=== PATIENT | female | born 1965 | race Caucasian/White ===

== ENCOUNTER 2017-02-10 14:58 | Emergency (ER) | payer BC, MEDICAID ==
[2017-02-10] MEDS ORDERED: Ondansetron 4 MG/2 ML SDV IVPUSH ONE (17:03)
[2017-02-10] MEDS ORDERED: Sodium Chloride 0.9% 1,000 ML IV SCH (17:15)
[2017-02-10] MEDS ORDERED: Acetaminophen 500 MG Tab PO ONE (17:16)
--- NOTE | 2017-02-10 17:16 | EDM.PDOC ---
ED HPI GENERAL MEDICAL PROBLEM - General Chief Complaint: Skin Complaint Stated Complaint: RASH ON BACK OF LEGS Time Seen by Provider: 02/10/17 16:40 Source of Information: Reports: Patient History Limitations: Reports: No Limitations - History of Present Illness INITIAL COMMENTS - FREE TEXT/NARRATIVE: 51 yo female presents left posterior upper leg. noticed mild tenderness 3 nights ago, increase in pain yesterday, this morning felt fatigue, fever, and chills. generally healthy Right Leg Pain Score (Numeric/FACES): 9 - Related Data Allergies Allergy/AdvReac Type Severity Reaction Status Date / Time No Known Allergies Allergy Verified 02/10/17 16:15 Home Meds: Home Meds NK [No Known Home Meds] 02/10/17 [History] Past Medical History Respiratory History: Reports: Asthma [employer] EMPLOYMENT SPECIALIST History: Reports: Dysfunctional Uterine Bleeding, Neurological History: Reports: Vertigo - Infectious Disease History Infectious Disease History: Reports: Chicken Pox - Past Surgical History Female Surgical History: Reports: Section Social & Family History - Tobacco Use Smoking Status *Q: Never Smoker Second Hand Smoke Exposure: No - Caffeine Use Caffeine Use: Reports: Coffee, Soda, Tea - Recreational Drug Use Recreational Drug Use: No ED ROS GENERAL - Review of Systems Review Of Systems: See Below Constitutional: Reports: Fever, Chills, Fatigue HEENT: Denies: Sinus Problem Respiratory: Denies: Shortness of Breath, Wheezing Cardiovascular: Denies: Chest Pain Skin: Reports: Lesions ED EXAM, SKIN/RASH Exam: See Below Exam Limited By: No Limitations General Appearance: Alert, WD/WN, Mild Distress Head: Atraumatic, Normocephalic Neck: Normal Inspection, Supple, Non-Tender, Full Range of Motion Respiratory/Chest: No Respiratory Distress, Lungs Clear, Normal Breath Sounds, No Accessory Muscle Use, Chest Non-Tender Cardiovascular: Normal Peripheral Pulses, No Murmur, Tachycardia Neurological: Alert, Oriented Location, Skin: Lower Extremity, Right Characteristics: Other (multiple pustules moderate surrounding edema and erythema, mild induration ) Associated features: Warmth Course - Vital Signs Last Recorded V/S: Last Vital Signs Temp 38.4 C H 02/10/17 18:49 Pulse 117 H 02/10/17 18:49 Resp 16 02/10/17 18:49 BP 146/79 H 02/10/17 18:49 Pulse Ox 97 02/10/17 18:49 - Orders/Labs/Meds Orders: Active Orders 24 hr Category Date Time Status Sodium Chloride 0.9% [Normal Saline] 1,000 ml Med 02/10/17 17:15 Active IV ASDIRECTED Medication Orders Sodium Chloride (Normal Saline) 1,000 mls @ 500 mls/hr IV ASDIRECTED DINESH Last Admin: 02/10/17 17:24 Dose: 500 mls/hr Labs: Laboratory Tests 02/10/17 02/10/17 Range/Units 17:14 17:34 WBC 14.8 H (4.5-11.0) K/uL RBC 4.98 (3.30-5.50) M/uL Hgb 14.0 (12.0-15.0) g/dL Hct 41.0 (36.0-48.0) % MCV 82 (80-98) fL MCH 28 (27-31) pg MCHC 34 (32-36) % Plt Count 291 (150-400) K/uL Neut % (Auto) 87 H (36-66) % Lymph % (Auto) 6 L (24-44) % [place] % (Auto) 6 (2-6) % Eos % (Auto) 0 L (2-4) % Baso % (Auto) 0 (0-1) % Lactic Acid 1.0 (0.4-2.0) mmol/L Meds: Medications Generic Name Dose Route Start Last Admin Trade Name Freq PRN Reason Stop Dose Admin Sodium Chloride 1,000 mls @ 500 mls/hr 02/10/17 17:15 02/10/17 17:24 Normal Saline IV 500 mls/hr ASDIRECTED DINESH Administration Discontinued Medications Generic Name Dose Route Start Last Admin Trade Name Freq PRN Reason Stop Dose Admin Acetaminophen 1,000 mg 02/10/17 17:16 02/10/17 17:29 Tylenol Extra Strength PO 02/10/17 17:17 1,000 mg ONETIME ONE Administration Clindamycin Phosphate 300 mg/ 52 mls @ 150 mls/hr 02/10/17 17:02 02/10/17 17: 24 Sodium Chloride IV 02/10/17 17:22 150 mls/hr ONETIME ONE Administration Ondansetron HCl 4 mg 02/10/17 17:03 02/10/17 17:24 Zofran IVPUSH 02/10/17 17:04 4 mg ONETIME ONE Administration - Re-Assessments/Exams Free Text/Narrative Re-Assessment/Exam: 02/10/17 19:10 IV antibiotics given will send home on oral Keflex. WBC 14.8 without left shift. Lactic acid normal at 1.0. fever decreased while in emergency room. Pt has established care with primary care provider and will follow-up tomorrow if not markedly improved Departure - Departure Time of Disposition: 19:06 Disposition: Home, Self-Care 01 Condition: Fair Clinical Impression: Cellulitis of lower extremity Qualifiers: Laterality: left Qualified Code(s): L03.116 - Cellulitis of left lower limb - Discharge Information Referrals: PCP,None [Primary Care Provider] - Forms: ED Department Discharge Additional Instructions: Keflex 500 mg twice daily for 10 days treat fever with alternating Ibuprofen 400 mg every 6 hours and tylenol every 6 hours staggered so that you have a fever suppressing medication in your system every 3 hours. tub soaks in warm soapy water at least 20 minutes twice daily until lesion is healed If you are not feeling markedly better by tomorrow noon you need to follow-up tomorrow with your primary care provider or return to emergency room if the redness grows outside the [place] your need to follow-up with you primary care provider or return to emergency room - My Orders Last 24 Hours: My Active Orders 02/10/17 17:15 Sodium Chloride 0.9% [Normal Saline] 1,000 ml IV ASDIRECTED - Assessment/Plan Last 24 Hours: My Active Orders 02/10/17 17:15 Sodium Chloride 0.9% [Normal Saline] 1,000 ml IV ASDIRECTED
[2017-02-10 18:50] VITALS: BP 146/79
== END 2017-02-10 19:28 | disposition home or self-care (01) ==
LOC: JP.ED 14:58
DX: L03.116 Cellulitis of left lower limb (principal)
CPT/HCPCS: 36415; 83605; 85025; 96361; 96365; 96375; 99283; A9270; J2405; J7040; J7050; S0077

== ENCOUNTER 2017-02-12 14:28 | Emergency (ER) | payer MEDICAID ==
[2017-02-12] MEDS ORDERED: Sodium Chloride 0.9% 10 ML Syringe FLUSH PRN (14:58)
--- NOTE | 2017-02-12 15:01 | EDM.PDOC ---
ED HPI GENERAL MEDICAL PROBLEM - General Chief Complaint: Lower Extremity Injury/Pain Stated Complaint: NEEDS IV ANTIBIOTICS PER CLINIC Time Seen by Provider: 02/12/17 14:54 Source of Information: Reports: Patient, Provider, RN Notes Reviewed History Limitations: Reports: No Limitations - History of Present Illness INITIAL COMMENTS - FREE TEXT/NARRATIVE: 51-year-old female presents emergency department day with a small abscess and redness progressing over the posterior aspect of the left leg she was evaluated in the emergency department couple days ago receive 1 dose of IV antibiotics and started on Keflex she followed up with her primary care provider the redness had progressed antibiotic were switched from Keflex to Bactrim she was subsequently evaluated in the urgent care today redness outlined by the pen has now progressed several inches past the original line. 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: Reports: Dysfunctional Uterine Bleeding, Neurological History: Reports: Vertigo - Infectious Disease History Infectious Disease History: Reports: Chicken Pox - Past Surgical History Female Surgical History: Reports: Section Social & Family History - Tobacco Use Smoking Status *Q: Never Smoker Second Hand Smoke Exposure: No - Caffeine Use Caffeine Use: Reports: Coffee, Soda, Tea - Recreational Drug Use Recreational Drug Use: No Review of Systems - Review of Systems Review Of Systems: See Below Constitutional: Reports: Chills, Fever Respiratory: Reports: No Symptoms Cardiovascular: Reports: No Symptoms GI/Abdominal: Reports: No Symptoms Skin: Reports: Pallor, Rash, Wound, Lesions ED EXAM, GENERAL - Physical Exam Exam: See Below Free Text/Narrative:: Examination of the integument system she does have a firm indurated area posterior aspect of the thigh left side there is erythema spreading out from that approximately 10 cm in diameter it is warm, it is tender to the touch Exam Limited By: No Limitations General Appearance: Alert, WD/WN, No Apparent Distress Respiratory/Chest: No Respiratory Distress, Lungs Clear, Normal Breath Sounds, No Accessory Muscle Use Cardiovascular: Regular Rate, Rhythm, No Murmur GI/Abdominal: Soft, Non-Tender Course - Vital Signs Last Recorded V/S: Last Vital Signs Temp 99 F 02/12/17 17:27 Pulse 84 02/12/17 16:23 Resp 16 02/12/17 16:23 BP 140/74 02/12/17 16:23 Pulse Ox 94 L 02/12/17 16:23 - Orders/Labs/Meds Orders: Active Orders 24 hr Category Date Time Status Peripheral IV Care [RC] . DIRECTED Care 02/12/17 14:58 Active CULTURE WOUND + SMEAR [RM] Stat Lab 02/12/17 17:48 Ordered Sodium Chloride 0.9% [Saline Flush] Med 02/12/17 14:58 Active 10 ml FLUSH ASDIRECTED PRN Peripheral IV Insertion Adult [OM.PC] Urgent Oth 02/12/17 14:58 Ordered Medication Orders Sodium Chloride (Saline Flush) 10 ml FLUSH ASDIRECTED PRN PRN Reason: Keep Vein Open Last Admin: 02/12/17 16:58 Dose: 10 ml Labs: Laboratory Tests 02/12/17 02/12/17 02/12/17 Range/Units 15:12 15:12 15:12 WBC 8.0 (4.5-11.0) K/uL RBC 5.01 (3.30-5.50) M/uL Hgb 14.2 (12.0-15.0) g/dL Hct 41.1 (36.0-48.0) % MCV 82 (80-98) fL MCH 28 (27-31) pg MCHC 35 (32-36) % Plt Count 277 (150-400) K/uL Neut % (Auto) 71 H (36-66) % Lymph % (Auto) 20 L (24-44) % [place] % (Auto) 8 H (2-6) % Eos % (Auto) 1 L (2-4) % Baso % (Auto) 0 (0-1) % Sodium 138 L (140-148) mmol/L Potassium 3.9 (3.6-5.2) mmol/L Chloride 103 (100-108) mmol/L Carbon Dioxide 24 (21-32) mmol/L Anion Gap 14.9 H (5.0-14.0) mmol/L BUN 6 L (7-18) mg/dL Creatinine 0.8 (0.6-1.0) mg/dL Est Cr Clr Drug Dosing 77.43 mL/min Estimated GFR (MDRD) > 60 (>60) Glucose 81 (74-106) mg/dL Lactic Acid 1.4 (0.4-2.0) mmol/L Calcium 9.0 (8.5-10.1) mg/dL Total Bilirubin 0.2 (0.2-1.0) mg/dL AST 19 (15-37) U/L ALT 17 (12-78) U/L Alkaline Phosphatase 67 (46-116) U/L C-Reactive Protein 8.43 H (0.0-0.3) mg/dL Total Protein 7.5 (6.4-8.2) g/dL Albumin 3.3 L (3.4-5.0) g/dL Globulin 4.2 H (2.3-3.5) g/dL Albumin/Globulin Ratio 0.8 L (1.2-2.2) Urine Color Urine Appearance Urine pH (4.5-8.0) Ur Specific [place] (1.008-1.030) Urine Protein (NEGATIVE) mg/dL Urine Glucose (UA) (NEGATIVE) mg/dL Urine Ketones (NEGATIVE) mg/dL Urine Occult Blood (NEGATIVE) Urine Nitrite (NEGATIVE) Urine Bilirubin (NEGATIVE) Urine Urobilinogen (NORMAL) mg/dL Ur Leukocyte Esterase (NEGATIVE) Urine RBC (0-5) Urine WBC (0-5) Ur Epithelial Cells Amorphous Sediment Urine Bacteria Urine Mucus 02/12/17 Range/Units 15:19 WBC (4.5-11.0) K/uL RBC (3.30-5.50) M/uL Hgb (12.0-15.0) g/dL Hct (36.0-48.0) % MCV (80-98) fL MCH (27-31) pg MCHC (32-36) % Plt Count (150-400) K/uL Neut % (Auto) (36-66) % Lymph % (Auto) (24-44) % [place] % (Auto) (2-6) % Eos % (Auto) (2-4) % Baso % (Auto) (0-1) % Sodium (140-148) mmol/L Potassium (3.6-5.2) mmol/L Chloride (100-108) mmol/L Carbon Dioxide (21-32) mmol/L Anion Gap (5.0-14.0) mmol/L BUN (7-18) mg/dL Creatinine (0.6-1.0) mg/dL Est Cr Clr Drug Dosing mL/min Estimated GFR (MDRD) (>60) Glucose (74-106) mg/dL Lactic Acid (0.4-2.0) mmol/L Calcium (8.5-10.1) mg/dL Total Bilirubin (0.2-1.0) mg/dL AST (15-37) U/L ALT (12-78) U/L Alkaline Phosphatase (46-116) U/L C-Reactive Protein (0.0-0.3) mg/dL Total Protein (6.4-8.2) g/dL Albumin (3.4-5.0) g/dL Globulin (2.3-3.5) g/dL Albumin/Globulin Ratio (1.2-2.2) Urine Color Yellow Urine Appearance Clear Urine pH 6.0 (4.5-8.0) Ur Specific [place] 1.015 (1.008-1.030) Urine Protein Negative (NEGATIVE) mg/dL Urine Glucose (UA) Normal (NEGATIVE) mg/dL Urine Ketones Negative (NEGATIVE) mg/dL Urine Occult Blood Large (NEGATIVE) Urine Nitrite Negative (NEGATIVE) Urine Bilirubin Negative (NEGATIVE) Urine Urobilinogen Normal (NORMAL) mg/dL Ur Leukocyte Esterase Negative (NEGATIVE) Urine RBC 20-30 H (0-5) Urine WBC 0-5 (0-5) Ur Epithelial Cells Few Amorphous Sediment Not seen Urine Bacteria Moderate Urine Mucus Not seen Meds: Medications Generic Name Dose Route Start Last Admin Trade Name Freq PRN Reason Stop Dose Admin Sodium Chloride 10 ml 02/12/17 14:58 02/12/17 16:58 Saline Flush FLUSH 10 ml ASDIRECTED PRN Administration Keep Vein Open Discontinued Medications Generic Name Dose Route Start Last Admin Trade Name Freq PRN Reason Stop Dose Admin Acetaminophen 650 mg 02/12/17 17:23 02/12/17 17:27 Tylenol PO 02/12/17 17:24 650 mg NOW ONE Administration Bupivacaine HCl/Epinephrine Bitart 50 ml 02/12/17 16:39 02/12/17 16:57 Marcaine 0.5%/Epinephrine 1:200,000 NERVRT 02/12/17 16:40 50 ml ONETIME ONE Administration Ceftriaxone Sodium 2 gm/ 50 mls @ 100 mls/hr 02/12/17 16:45 02/12/17 16:57 Sodium Chloride IV 02/12/17 17:14 100 mls/hr ONETIME ONE Administration Departure - Departure Time of Disposition: 17:53 Disposition: Home, Self-Care 01 Condition: Good Clinical Impression: Cellulitis of lower extremity Qualifiers: Laterality: left Qualified Code(s): L03.116 - Cellulitis of left lower limb - Discharge Information Forms: ED Department Discharge Additional Instructions: Take Keflex 2 tablets twice a day or 1000 mg each dose, continue with Bactrim DS as prescribed, use Zofran as needed for nausea and vomiting symptoms, recommend starting a probiotic, Please followup with your primary care provider in 2-3 days if not better, please call return to the emergency department with worsening of symptoms. - My Orders Last 24 Hours: My Active Orders 02/12/17 14:58 Peripheral IV Care [RC] . DIRECTED Sodium Chloride 0.9% [Saline Flush] 10 ml FLUSH ASDIRECTED PRN Peripheral IV Insertion Adult [OM.PC] Urgent 02/12/17 17:48 CULTURE WOUND + SMEAR [RM] Stat - Assessment/Plan Last 24 Hours: My Active Orders 02/12/17 14:58 Peripheral IV Care [RC] . DIRECTED Sodium Chloride 0.9% [Saline Flush] 10 ml FLUSH ASDIRECTED PRN Peripheral IV Insertion Adult [OM.PC] Urgent 02/12/17 17:48 CULTURE WOUND + SMEAR [RM] Stat Plan: Assessment Acuity = acute Site and laterality = cellulitis left thigh without abscess Etiology = secondary for bacterial cause Manifestations = fever Location of injury = home Lab values = CBC within normal limits sodium low at 138 consistent hyponatremia CRP elevated 8.43 albumin low at 3.3 consistent hypoalbuminemia urinalysis 20- 30 rbc's consistent hematuria Plan I did review lab work with her I don't believe she is septic at this time she was given 2 g Rocephin IV I'm going to continue her home antibiotics of Keflex and Bactrim however I'm going to change the dose of Keflex 2000 mg twice a day continue with the same dose of Bactrim and do both medications simultaneously have her follow-up clinic in 2-3 days if no improvement or return to the emergency department with worsening of conditions Patient was in agreement with the plan all questions were answered, they were instructed to return to the emergency department or call for worsening symptoms. This note was dictated using [employer] voice recognition software please call with any questions.
[2017-02-12 16:24] VITALS: BP 140/74
[2017-02-12] MEDS ORDERED: cefTRIAXone 2 GM in Sodium Chloride 0.9% 50 ML IV ONE ×2 (16:25→16:45)
[2017-02-12] MEDS ORDERED: Bupivacaine 0.5%/EPINEPHrine 1:200,000 50 ML MDV NERVRT ONE (16:39)
[2017-02-12] MEDS ORDERED: Acetaminophen 325 MG Tab PO ONE (17:23)
== END 2017-02-12 18:19 | disposition home or self-care (01) ==
LOC: JP.ED 14:28
DX: L03.116 Cellulitis of left lower limb (principal); J45.909 Unspecified asthma, uncomplicated
CPT/HCPCS: 36415; 80053; 81001; 83605; 85025; 86140; 87070; 87205; 96374; 99284; A9270; J0696; J7050

== ENCOUNTER 2017-11-22 07:23 | Day surgery (SDC) | payer MEDICAID ==
[2017-11-22] MEDS ORDERED: Lactated Ringers 1,000 ML IV SCH (08:15)
[2017-11-22] MEDS ORDERED: Propofol 200 MG/20 ML SDV ONE ×3 (08:50→09:54)
[2017-11-22] MEDS ORDERED: Midazolam 1 MG/ML 2 ML SDV ONE (08:50)
[2017-11-22] MEDS ORDERED: fentaNYL 100 MCG/2 ML SDV ONE (08:50)
[2017-11-22 11:26] VITALS: BP 175/96
[2017-11-22] MEDS ORDERED: Iopamidol 612 MG/ML 100 ML Bottle IV PRN (11:32)
[2017-11-22] MEDS ORDERED: Sodium Chloride 0.9% 80 ML IV SCH (11:45)
--- NOTE | 2017-11-22 12:25 | CT ---
CT chest, abdomen and pelvis. Total DLP 748. Findings: No enlarged mediastinal or hilar adenopathy. No focal consolidation. Tiny 2 to 3 mm pulmona ry nodule right upper lobe. Coronal image #38. No pleural effusion. No acute osseous abnormality. Tin y hypodensity within the right lobe of liver axial image #106 measures 3.5 mm and is too small to dorian racterize. Gallbladder within normal limits. Pancreas within normal limits. Bilateral adrenal glands are within normal limits. Spleen within normal limits. Kidneys enhance normally. No hydronephrosis. S mall bowel loops are nondilated. Limitations of the terminal ileum due to lack of oral contrast. No a cute osseous abnormality. Tortuous transverse colon. At the hepatic flexure there is mild wall thicke rosita posteriorly and medially. Mild hazy fat stranding as well about the colon wall on axial image #1 24. Tiny foci of free intraperitoneal air indicating colonic perforation. There is a few mesenteric l ymph nodes which are nonenlarged adjacent to the hepatic flexure on axial image #111. Appendix within normal limits. The cecum is greatly limited due to lack of oral contrast and adjacent small bowel lo ops. Impression: 1. Soft tissue wall thickening at the hepatic flexure may indicate the expected cancerous lesion. It appears vague within the wall and does not have convex margins. No appreciable stricture at this loca tion. There are lymph nodes in this location of the hepatic flexure but they're not enlarged. 2. Tiny foci of free air axial image #125 indicating colonic perforation. 3. Tiny hypodensity 4 mm within the posterior segment right lobe of the liver is too small to charact erize but would recommend CT follow-up in at least 6 months. 4. Tiny pulmonary nodule 2-3 mm right upper lobe. Recommend CT follow-up in 6 months.
--- NOTE | 2017-11-25 09:49 | OR ---
DATE OF PROCEDURE: 11/22/2017 PREOPERATIVE DIAGNOSIS: Colon cancer screening. POSTOPERATIVE DIAGNOSIS: Multiple colon polyps, hepatic flexure lesion consistent with adenocarcinoma. PROCEDURE PERFORMED: Colonoscopy to the cecum with biopsy and tattoo of hepatic flexure lesion, biopsy and snare cautery polypectomy of multiple polyps. SURGEON: Cam Reddy MD. AZURE ARCHITECT: Nohemy Nguyen MS3. ANESTHESIA: IV anesthesia with monitored anesthesia care. INDICATION: This 52-year-old white female is referred for a colonoscopy for colon cancer screening. 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 I counseled her for the procedure including risks and alternatives, and she gave her informed consent to proceed. DESCRIPTION OF PROCEDURE: The patient was placed in the left lateral decubitus position. IV anesthesia was administered by the Anesthesia Service. Time-out was held. A rectal exam was performed, which was unremarkable. The flexible video Olympus colonoscope was introduced through her anus, up her rectum, out her colon all way to the cecum. En route, at 40 cm from anal verge, we encountered a polyp which was fairly small and removed with the biopsy forceps. At about the area of the hepatic flexure, we encountered a circumferential mass which consumed almost one-half the circumference of the colon and is consistent with adenocarcinoma. This was biopsied and then the area was tattooed with Sudha ink. Once the cecum was reached, the scope was slowly withdrawn, examining the mucosa throughout. No other lesions were noted until we reached about 35 cm from the anal verge. Here , 2 polyps adjacent to each other were seen which were removed with the biopsy forceps and sent to the laboratory as 1 specimen. At 15 cm from the anal verge, another polyp was seen, which was removed with the biopsy forceps and sent to the laboratory. At 10 cm, an additional polyp was seen. We initially biopsied this one, but it was too large to remove using this technique. A snare was passed about its base, it was elevated up away from the bowel wall and amputated as electrocautery was applied. This polyp was aspirated up through the scope and captured in a polyp trap. In the rectum, we saw another polyp which again was biopsied, but too large to remove using this technique. We then placed a snare about its base, it was elevated up away from the bowel wall and amputated as electrocautery was applied. It was aspirated through the scope and captured in a polyp trap. The scope was retroflexed with the distal rectum appearing unremarkable. The scope was straightened and removed. She tolerated the procedure well. We will get a CBC, CMP, and CEA, type and screen , and a CAT scan of chest, abdomen and pelvis at this time. Cam Reddy MD /[id number]
== END 2017-11-22 12:45 | disposition home or self-care (01) ==
LOC: JP.SDS 07:23
PROVIDERS: ATTEND Surgery
DX: Z12.11 Encounter for screening for malignant neoplasm of colon (principal); C18.3 Malignant neoplasm of hepatic flexure; D12.6 Benign neoplasm of colon, unspecified; D12.8 Benign neoplasm of rectum; J45.909 Unspecified asthma, uncomplicated; Z79.899 Other long term (current) drug therapy; Z98.890 Other specified postprocedural states
CPT/HCPCS: 36415; 45380; 45381; 45385; 71260; 74177; 80053; 82378; 85025; 86850; 86900; 86901; J2250; J2704; J3010; J7030; J7120; Q9967; 88305

== ENCOUNTER 2017-11-25 08:11 | Inpatient (IN) | payer MEDICAID ==
[~2017-11-25 08:11] MED LIST: Dexamethasone 4 MG/ML SDV ONE; Glycopyrrolate 0.2 MG/ML 5 ML MDV ONE; Naloxone 0.4 MG/ML SDV IVPUSH PRN; Neostigmine Methylsulfate 1 MG/ML 5 ML Syringe ONE; Ondansetron 4 MG/2 ML SDV ONE; Propofol 200 MG/20 ML SDV ONE; Rocuronium 50 MG/5 ML Vial ONE; Sodium Chloride 0.9% 10 ML ONE; Succinylcholine 200 MG/10 ML MDV ONE; fentaNYL 100 MCG/2 ML SDV ONE
[2017-11-25] MEDS ORDERED: Gabapentin 300 MG Cap PO ONE (08:30)
[2017-11-25] MEDS ORDERED: Scopolamine 1.5 MG Transdermal Patch TOP SCH (08:30)
[2017-11-25] MEDS ORDERED: Celecoxib 200 MG Cap PO ONE (08:30)
[2017-11-25] MEDS: Acetaminophen 500 MG Tab PO ONE ×2 (08:40→08:47)
[2017-11-25] MEDS ORDERED: Dextrose 5%-Lactated Ringers 1,000 ML IV SCH (08:45)
[2017-11-25] MEDS ORDERED: Ketamine 500 MG/5 ML MDV IV ONE (10:00)
[2017-11-25] MEDS ORDERED: cefOXitin 2 GM in Sodium Chloride 0.9% 50 ML IV ONE (10:30)
[2017-11-25] MEDS ORDERED: Lactated Ringers 1,000 ML ONE (12:15)
[2017-11-25] MEDS ORDERED: Ondansetron 4 MG/2 ML SDV IVPUSH PRN (12:50)
[2017-11-25] MEDS ORDERED: Acetaminophen 325 MG Tab PO PRN (12:50)
[2017-11-25] MEDS ORDERED: hydrOXYzine HCl 100 MG/2 ML SDV IM ONE (12:53)
[2017-11-25] MEDS ORDERED: diphenhydrAMINE 50 MG/ML SDV IVPUSH PRN (14:06)
[2017-11-25] MEDS ORDERED: Meperidine PF 75 MG/ML Syringe IM PRN (14:08)
[2017-11-25] MEDS: D5 1/2 NS w/ 20 mEq/L KCl 1,000 ML IV SCH (14:51)
[2017-11-25] MEDS: fentaNYL 2,500 MCG in Sodium Chloride 0.9% 200 ML EPIDUR SCH (14:55)
[2017-11-25] MEDS: Gabapentin 300 MG Cap PO SCH (20:49)
[2017-11-26] MEDS: D5 1/2 NS w/ 20 mEq/L KCl 1,000 ML IV SCH ×2 (02:15→15:01)
--- NOTE | 2017-11-26 06:51 | PCM.SURGPN ---
- General Info Date of Service: 11/26/17 Date of Surgery/Procedure: 11/25/17 POD#: 1 Post-Op Diagnosis: Colon cancer Functional Status: Reports: Pain Controlled, Tolerating Diet, Ambulating, Urinating (Brown), Incentive Spirometry - Review of Systems General: Reports: No Symptoms HEENT: Reports: No Symptoms Pulmonary: Reports: No Symptoms Cardiovascular: Reports: No Symptoms Gastrointestinal: Reports: No Symptoms Genitourinary: Reports: No Symptoms Musculoskeletal: Reports: No Symptoms Skin: Reports: No Symptoms Neurological: Reports: No Symptoms Psychiatric: Reports: No Symptoms - Patient Data Vitals - Most Recent: Last Vital Signs Temp 99.0 F 11/26/17 02:17 Pulse 87 11/26/17 02:17 Resp 18 11/26/17 02:17 BP 140/61 11/26/17 02:17 Pulse Ox 97 11/26/17 02:17 Weight - Most Recent: 165 lb 0.9 oz I&O - Last 24 Hours: Intake & Output 11/25/17 11/25/17 11/26/17 14:59 22:59 06:59 Intake Total 100 1202 1589 Output Total 450 640 320 Balance -[phone] Lab Results Last 24 Hrs: Laboratory Results - last 24 hr 11/26/17 11/26/17 Range/Units 04:50 04:50 WBC 10.8 (4.5-11.0) K/uL RBC 4.33 (3.30-5.50) M/uL Hgb 11.9 L D (12.0-15.0) g/dL Hct 35.8 L (36.0-48.0) % MCV 83 (80-98) fL MCH 28 (27-31) pg MCHC 33 (32-36) % Plt Count 282 (150-400) K/uL Sodium 137 L (140-148) mmol/L Potassium 3.6 (3.6-5.2) mmol/L Chloride 104 (100-108) mmol/L Carbon Dioxide 25 (21-32) mmol/L Anion Gap 11.6 (5.0-14.0) mmol/L BUN 4 L (7-18) mg/dL Creatinine 0.7 (0.6-1.0) mg/dL Est Cr Clr Drug Dosing 86.17 mL/min Estimated GFR (MDRD) > 60 (>60) Glucose 116 H (74-106) mg/dL Calcium 7.9 L (8.5-10.1) mg/dL Med Orders - Current: Current Medications Acetaminophen (Tylenol) 650 mg PO Q6H PRN PRN Reason: Pain (mild 1-3) Celecoxib (Celebrex) 200 mg PO DAILY@0800 [facility] Diphenhydramine HCl (Benadryl) 25 - 50 mg IVPUSH Q6H PRN PRN Reason: ITCHING Gabapentin (Neurontin) 300 mg PO TID [facility] Last Admin: 11/25/17 20:49 Dose: 300 mg Fentanyl 2,500 mcg/ Sodium (Chloride) 250 mls @ 0 mls/hr EPIDUR TITRATE [facility]; Protocol Last Admin: 11/25/17 14:55 Dose: 10 mls/hr, 10 mls/hr Potassium Chloride/Dextrose/Sod Cl (D5 1/2 Ns W/ 20 Meq/L Kcl) 1,000 mls @ 75 mls/hr IV ASDIRECTED [facility] Last Admin: 11/26/17 02:15 Dose: 75 mls/hr Naloxone HCl (Narcan) 0.1 mg IVPUSH Q5M PRN PRN Reason: RESP RATE LESS THAN 6/MINUTE Naloxone HCl (Narcan) 0.4 mg IV ASDIRECTED PRN PRN Reason: ITCHING or Sleepiness Ondansetron HCl (Zofran) 4 mg IVPUSH Q6H PRN PRN Reason: Nausea/Vomiting Scopolamine (Transderm-Scop) 1.5 mg TOP Q72H [facility] Stop: 11/28/17 06:30 Last Admin: 11/25/17 08:33 Dose: 1.5 mg Discontinued Medications Acetaminophen (Tylenol Extra Strength) 1,000 mg PO ONETIME ONE Stop: 11/25/17 08:31 Last Admin: 11/25/17 08:47 Dose: 1,000 mg Celecoxib (Celebrex) 200 mg PO ONETIME ONE Stop: 11/25/17 08:31 Last Admin: 11/25/17 08:35 Dose: 200 mg Celecoxib (Celebrex) 200 mg PO DAILY [facility] Dexamethasone (Dexamethasone) Confirm Administered Dose 4 mg .ROUTE .STK-MED ONE Stop: 11/25/17 08:07 Fentanyl (Sublimaze) Confirm Administered Dose 100 mcg .ROUTE .STK-MED ONE Stop: 11/25/17 08:08 Fentanyl Citrate (Fentanyl) Confirm Administered Dose 500 mcg .ROUTE .STK-MED ONE Stop: 11/25/17 08:08 Gabapentin (Neurontin) 300 mg PO ONETIME ONE Stop: 11/25/17 08:31 Last Admin: 11/25/17 08:35 Dose: 300 mg Glycopyrrolate (Robinul) Confirm Administered Dose 1 mg .ROUTE .STK-MED ONE Stop: 11/25/17 08:07 Hydroxyzine HCl (Vistaril) 75 mg IM ONETIME ONE Stop: 11/25/17 12:54 Last Admin: 11/25/17 13:03 Dose: 75 mg Cefoxitin Sodium 2 gm/ Sodium (Chloride) 50 mls @ 100 mls/hr IV ONETIME ONE Stop: 11/25/17 10:59 Last Admin: 11/25/17 10:58 Dose: 100 mls/hr Dextrose/Lactated Ringer's (Dextrose 5%-Lactated Ringers) 1,000 mls @ 100 mls/ hr IV ASDIRECTED [facility] Last Admin: 11/25/17 08:48 Dose: 100 mls/hr Sodium Chloride (Normal Saline) Confirm Administered Dose 10 mls @ as directed .ROUTE .STK-MED ONE Stop: 11/25/17 08:08 Lactated Ringer's (Ringers, Lactated) Confirm Administered Dose 1,000 mls @ as directed .ROUTE .STK-MED ONE Stop: 11/25/17 12:16 Ketamine HCl (Ketalar) 29 mg IV ONETIME ONE Stop: 11/25/17 10:01 Lidocaine HCl (Xylocaine-Mpf 1%) Confirm Administered Dose 5 ml .ROUTE .STK-MED ONE Stop: 11/25/17 08:43 Meperidine HCl (Demerol) 75 mg IM ONETIME PRN PRN Reason: BREAKTHROUGH PAIN Stop: 11/25/17 23:00 Neostigmine Methylsulfate (Neostigmine) Confirm Administered Dose 5 mg .ROUTE .STK-MED ONE Stop: 11/25/17 08:07 Ondansetron HCl (Zofran) Confirm Administered Dose 4 mg .ROUTE .STK-MED ONE Stop: 11/25/17 08:07 Propofol (Diprivan 20 Ml) Confirm Administered Dose 200 mg .ROUTE .STK-MED ONE Stop: 11/25/17 08:07 Rocuronium Huslia (Zemuron) Confirm Administered Dose 50 mg .ROUTE .STK-MED ONE Stop: 11/25/17 08:07 Succinylcholine Chloride (Quelicin) Confirm Administered Dose 200 mg .ROUTE .STK -MED ONE Stop: 11/25/17 08:07 - Exam Wound/Incisions: Dressing Dry and Intact General: Alert, Cooperative, No Acute Distress Lungs: Clear to Auscultation, Normal Respiratory Effort Cardiovascular: Regular Rate, Regular Rhythm GI/Abdominal Exam: Normal Bowel Sounds, Soft, Non-Tender, No Distention Extremities: Normal Inspection Skin: Warm, Dry, Intact Neurological: No New Focal Deficit Psy/Mental Status: Alert, Normal Affect - Problem List & Annotations (1) Adenocarcinoma of colon SNOMED Code(s): 686549668, 106109188 Code(s): C18.9 - MALIGNANT NEOPLASM OF COLON, UNSPECIFIED Status: Acute Current Visit: Yes - Problem List Review Problem List Initiated/Reviewed/Updated: Yes - My Orders Last 24 Hours: Active Orders 24 hr Category Date Time Status Patient Status [ADT] Routine ADT 11/25/17 12:50 Active Ambulate [RC] ASDIRECTED Care 11/25/17 12:50 Active Antiembolic Devices [RC] .Routine Care 11/25/17 12:59 Active Communication Order [RC] ASDIRECTED Care 11/25/17 13:03 Active Communication Order [RC] ASDIRECTED Care 11/25/17 13:05 Active DC Brown Catheter [Urinary Catheter Removal] [RC] Per Care 11/26/17 06:48 Ordered Unit Routine Head of Bed Elevation [RC] CONTINUOUS Care 11/25/17 12:50 Active Intake and Output [RC] Q4HR Care 11/25/17 12:58 Active Notify Provider Vital Signs [RC] PRN Care 11/25/17 12:58 Active Oxygen Therapy [RC] PRN Care 11/25/17 12:50 Active PCEA Epidural [RC] ASDIRECTED Care 11/25/17 12:54 Active Pneumonia Education [RC] UPON Care 11/25/17 12:50 Active Pulse Oximetry [RC] CONTINUOUS Care 11/25/17 12:59 Active RT Incentive Spirometry [RC] Q1HWA Care 11/25/17 12:50 Active Turn, Cough, Deep Breathe [RC] Q1HWA Care 11/25/17 12:50 Active Up With Assistance [RC] ASDIRECTED Care 11/25/17 12:50 Active Up ad Lurdes [RC] ASDIRECTED Care 11/25/17 12:50 Active Up to Chair [RC] TIDMEALS Care 11/25/17 12:50 Active VTE/DVT Education [RC] Click to Edit Care 11/25/17 12:59 Active Vital Signs [RC] PER UNIT ROUTINE Care 11/25/17 12:50 Active Respiratory Care Assess and Treatment [CONS] Routine Cons 11/25/17 12:50 Active Clear Liquid Diet [DIET] Diet 11/25/17 Dinner Active BASIC METABOLIC PANEL,BMP [CHEM] DAILY Lab 11/27/17 05:11 Ordered BASIC METABOLIC PANEL,BMP [CHEM] DAILY Lab 11/28/17 05:11 Ordered BASIC METABOLIC PANEL,BMP [CHEM] DAILY Lab 11/29/17 05:11 Ordered BASIC METABOLIC PANEL,BMP [CHEM] DAILY Lab 11/30/17 05:11 Ordered BASIC METABOLIC PANEL,BMP [CHEM] DAILY Lab 12/01/17 05:11 Ordered CBC W/O DIFF,HEMOGRAM [HEME] DAILY Lab 11/27/17 05:11 Ordered CBC W/O DIFF,HEMOGRAM [HEME] DAILY Lab 11/28/17 05:11 Ordered CBC W/O DIFF,HEMOGRAM [HEME] DAILY Lab 11/29/17 05:11 Ordered CBC W/O DIFF,HEMOGRAM [HEME] DAILY Lab 11/30/17 05:11 Ordered CBC W/O DIFF,HEMOGRAM [HEME] DAILY Lab 12/01/17 05:11 Ordered Acetaminophen [Tylenol] Med 11/25/17 12:50 Active 650 mg PO Q6H PRN Celecoxib [CeleBREX] Med 11/26/17 08:00 Active 200 mg PO DAILY@0800 D5 1/2 NS w/ 20 mEq/L KCl 1,000 ml Med 11/25/17 13:15 Active IV ASDIRECTED Enoxaparin [Lovenox] Med 11/26/17 09:00 Ordered 40 mg SUBCUT DAILY Gabapentin [Neurontin] Med 11/25/17 21:00 Active 300 mg PO TID Naloxone [Narcan] Med 11/25/17 07:44 Active 0.1 mg IVPUSH Q5M PRN Naloxone [Narcan] Med 11/25/17 14:06 Active 0.4 mg IV ASDIRECTED PRN Ondansetron [Zofran] Med 11/25/17 12:50 Active 4 mg IVPUSH Q6H PRN Scopolamine [Transderm-Scop] Med 11/25/17 08:30 Active 1.5 mg TOP Q72H diphenhydrAMINE [Benadryl] Med 11/25/17 14:06 Active 25 - 50 mg IVPUSH Q6H PRN fentaNYL [Sublimaze] 2,500 mcg Med 11/25/17 09:30 Active Sodium Chloride 0.9% [Normal Saline] 200 ml EPIDUR TITRATE Abdominal Binder [OM.PC] Per Unit Routine Oth 11/25/17 12:58 Ordered DVT/VTE Prophylaxis Reflex [OM.PC] Per Unit Routine Oth 11/25/17 12:59 Ordered Epidural Catheter Management [OM.PC] Routine Oth 11/25/17 12:50 Ordered Sequential Compression Device [OM.PC] Routine Oth 11/25/17 12:50 Ordered Resuscitation Status Routine Resus Stat 11/25/17 12:50 Ordered Medication Orders Acetaminophen (Tylenol) 650 mg PO Q6H PRN PRN Reason: Pain (mild 1-3) Celecoxib (Celebrex) 200 mg PO DAILY@0800 [facility] Diphenhydramine HCl (Benadryl) 25 - 50 mg IVPUSH Q6H PRN PRN Reason: ITCHING Gabapentin (Neurontin) 300 mg PO TID [facility] Last Admin: 11/25/17 20:49 Dose: 300 mg Fentanyl 2,500 mcg/ Sodium (Chloride) 250 mls @ 0 mls/hr EPIDUR TITRATE [facility]; Protocol Last Admin: 11/25/17 14:55 Dose: 10 mls/hr, 10 mls/hr Potassium Chloride/Dextrose/Sod Cl (D5 1/2 Ns W/ 20 Meq/L Kcl) 1,000 mls @ 75 mls/hr IV ASDIRECTED [facility] Last Admin: 11/26/17 02:15 Dose: 75 mls/hr Infusion: 11/26/17 02:15 Dose: 75 mls/hr Admin: 11/25/17 14:51 Dose: 75 mls/hr Naloxone HCl (Narcan) 0.1 mg IVPUSH Q5M PRN PRN Reason: RESP RATE LESS THAN 6/MINUTE Naloxone HCl (Narcan) 0.4 mg IV ASDIRECTED PRN PRN Reason: ITCHING or Sleepiness Ondansetron HCl (Zofran) 4 mg IVPUSH Q6H PRN PRN Reason: Nausea/Vomiting Scopolamine (Transderm-Scop) 1.5 mg TOP Q72H [facility] Stop: 11/28/17 06:30 Last Admin: 11/25/17 08:33 Dose: 1.5 mg - Assessment Assessment (Free Text/Narrative):: Doing well. - Plan Plan (Free Text/Narrative):: D/C Brown. Start Lovenox.
--- NOTE | 2017-11-26 07:33 | OR ---
DATE OF PROCEDURE: 11/25/2017 PREOPERATIVE DIAGNOSIS: Hepatic flexure tumor. POSTOPERATIVE DIAGNOSIS: Hepatic flexure tumor. PROCEDURE: Right hemicolectomy with primary ileo-transverse colon anastomosis. SURGEON: Cam Reddy MD. ANESTHESIA: General endotracheal. INDICATION: This 52-year-old white female underwent a colonoscopy three days ago. This showed multiple polyps and a tumor at the hepatic flexure. This was circumferential and almost consumed half the circumference of the colon. She desired that we proceed with bowel resection at this time. CT of her chest, abdomen, and pelvis showed some small lesions, which did not appear to be associated with metastases. Her liver functions were unremarkable. Her CEA is normal. I counseled her for surgery, including risks and alternatives, and she gave her informed consent to proceed. DESCRIPTION OF PROCEDURE: After adequate general endotracheal anesthesia was obtained, a Brown catheter was placed. Her abdomen was prepped and draped in the usual sterile fashion. The leg compression stockings were in place and used during the entire procedure. Time-out was held. An upper midline incision was made. This was carried deep using Bovie cautery to the fascia. The fascia was incised the length of the skin incision using Bovie cautery. The underlying preperitoneal fat was dissected free and the peritoneum was elevated and incised, entering the abdomen. The peritoneal incision was extended the length of the skin incision using Bovie cautery while protecting underlying structures. The abdomen was explored; we could feel the tumor at the hepatic flexure. The liver palpated as unremarkable; no other lesions were palpated. The peritoneal reflection along the right colic gutter was sharply incised, and the right colon was mobilized up, as was the proximal transverse colon. Suitable points for the resection were selected. The colon was divided distal to the tumor with an 80 mm JUDE, using a blue load with one end of the division at a tenia. The terminal ileum was then divided also with a JUDE, again using a blue load. This was oriented antimesenteric to mesenteric border. The intervening mesentery was divided with the JUDE using white loads well away from the colon, and no enlarged lymph nodes were palpated. The specimen then, consisting of the portion of the terminal ileum, appendix, cecum, right colon, and portion of the transverse colon, was delivered from the field. The terminal ileum was brought up to the transverse colon, and an anastomosis was done here. This is a functional end-to-end anastomosis. The anti- mesenteric border of the terminal ileum and the tenia end of the staple line were both opened. An 80 mm stapler using a blue load was placed into each limb and fired , making the anastomosis. The distal end of the staple line was bolstered with a 2-0 silk suture. The opening through which this was done was then closed with an 80 mm JUDE blue load. This last staple line was oversewn with Lembert stitches of 3-0 Vicryl. The mesenteric defect was then closed with a running stitch of 3-0 Vicryl. Tisseel fibrin sealant was placed over the anastomosis. The abdomen was irrigated with sterile water and suctioned dry. All looked well. The anastomosis was returned to the abdominal cavity. We changed gown and gloves and put new drapes on the field. The fascia was then closed with a running stitch of #2 Vicryl. The incision was irrigated and dried and then iodoform gauze and a sterile dressing were placed with planned delayed primary closure in 2 days. The anesthesia was reversed. She was extubated and brought to the recovery room in good condition. The specimen was opened off the field to reveal the tumor. Cam Reddy MD /[id number] MTDD
[2017-11-26] MEDS ORDERED: Acetaminophen 500 MG Tab PO ONE (08:30)
[2017-11-26] MEDS: Enoxaparin 40 MG/0.4 ML Syringe SUBCUT SCH (08:49)
[2017-11-26] MEDS: Celecoxib 200 MG Cap PO SCH (08:49)
[2017-11-26] MEDS: Gabapentin 300 MG Cap PO SCH ×3 (08:49→20:17)
[2017-11-26] MEDS ORDERED: Celecoxib 200 MG Cap PO SCH (09:00)
[2017-11-26] MEDS: fentaNYL 2,500 MCG in Sodium Chloride 0.9% 200 ML EPIDUR SCH (09:31)
[2017-11-27] MEDS: D5 1/2 NS w/ 20 mEq/L KCl 1,000 ML IV SCH ×2 (04:32→13:23)
[2017-11-27] MEDS ORDERED: Bupivacaine 0.5% 50 ML MDV ONE (06:52)
[2017-11-27] MEDS ORDERED: Lidocaine 1% with EPINEPHrine 1:100,000 50 ML MDV ONE (06:52)
[2017-11-27] MEDS ORDERED: Propofol 200 MG/20 ML SDV ONE (08:45)
[2017-11-27] MEDS ORDERED: Midazolam 1 MG/ML 2 ML SDV ONE (08:45)
[2017-11-27] MEDS: fentaNYL 2,500 MCG in Sodium Chloride 0.9% 200 ML EPIDUR SCH (10:21)
[2017-11-27] MEDS ORDERED: Lactated Ringers 1,000 ML ONE (10:43)
[2017-11-27] MEDS: Celecoxib 200 MG Cap PO SCH (12:16)
[2017-11-27] MEDS: Gabapentin 300 MG Cap PO SCH ×3 (12:16→20:11)
[2017-11-27] MEDS: Naloxone 0.4 MG/ML SDV IV PRN (13:21)
[2017-11-27] MEDS: Enoxaparin 40 MG/0.4 ML Syringe SUBCUT SCH (14:47)
--- NOTE | 2017-11-27 15:31 | OR ---
DATE OF PROCEDURE: 11/27/2017 PREOPERATIVE DIAGNOSIS: Open abdominal incision, status post right hemicolectomy. POSTOPERATIVE DIAGNOSIS: Open abdominal incision, status post right hemicolectomy. Incision looks well. PROCEDURE: Delayed primary closure of abdominal incision. SURGEON: Cam Reddy MD. ANESTHESIA: IV anesthesia with monitored anesthesia care. 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 Her incision was left open for delayed primary closure. She has no complaints. I counseled her for examining the incision and hopefully closing it, including risks and alternatives, and she gave her informed consent to proceed. DESCRIPTION OF PROCEDURE: After adequate IV anesthesia was obtained, the dressings were removed. Her abdomen was prepped with Betadine and draped. Time-out was held. The incision was irrigated with sterile water. It looked quite well. The skin was then closed with skin norma. Aquacel Ag dressing was applied. She tolerated the procedure well and was brought to recovery room in good condition. Cam Reddy MD /[id number] MTDD
[2017-11-28] MEDS: D5 1/2 NS w/ 20 mEq/L KCl 1,000 ML IV SCH ×2 (02:38→13:35)
[2017-11-28] MEDS: Naloxone 0.4 MG/ML SDV IV PRN ×2 (02:38→13:35)
--- NOTE | 2017-11-28 05:29 | PCM.SURGPN ---
- General Info Date of Service: 11/28/17 Date of Surgery/Procedure: 11/25/17 POD#: 3 Post-Op Diagnosis: Colon adenocarcinoma Functional Status: Reports: Pain Controlled, Tolerating Diet, Ambulating, Urinating, Incentive Spirometry - Review of Systems General: Reports: No Symptoms HEENT: Reports: No Symptoms Pulmonary: Reports: No Symptoms Cardiovascular: Reports: No Symptoms Gastrointestinal: Reports: No Symptoms, Flatus (Passing gas. ) Genitourinary: Reports: No Symptoms Musculoskeletal: Reports: No Symptoms Skin: Reports: No Symptoms Neurological: Reports: No Symptoms Psychiatric: Reports: No Symptoms - Patient Data Vitals - Most Recent: Last Vital Signs Temp 98.1 F 11/28/17 03:00 Pulse 100 11/28/17 03:00 Resp 16 11/28/17 03:00 BP 152/73 H 11/28/17 03:00 Pulse Ox 98 11/28/17 03:00 Weight - Most Recent: 165 lb 0.891 oz I&O - Last 24 Hours: Intake & Output 11/27/17 11/27/17 11/28/17 14:59 22:59 06:59 Intake Total 1980 1467 Output Total 300 2800 1200 Balance -300 -820 267 Lab Results Last 24 Hrs: Laboratory Results - last 24 hr 11/27/17 11/27/17 11/28/17 Range/Units 05:30 05:30 04:48 WBC 9.8 8.2 (4.5-11.0) K/uL RBC 4.10 4.19 (3.30-5.50) M/uL Hgb 11.6 L 11.6 L (12.0-15.0) g/dL Hct 34.6 L 35.2 L (36.0-48.0) % MCV 84 84 (80-98) fL MCH 28 28 (27-31) pg MCHC 34 33 (32-36) % Plt Count 240 241 (150-400) K/uL Sodium 134 L (140-148) mmol/L Potassium 3.8 (3.6-5.2) mmol/L Chloride 103 (100-108) mmol/L Carbon Dioxide 26 (21-32) mmol/L Anion Gap 8.8 (5.0-14.0) mmol/L BUN 2 L (7-18) mg/dL Creatinine 0.6 (0.6-1.0) mg/dL Est Cr Clr Drug Dosing 100.52 mL/min Estimated GFR (MDRD) > 60 (>60) Glucose 103 (74-106) mg/dL Calcium 7.9 L (8.5-10.1) mg/dL 11/28/17 Range/Units 04:48 WBC (4.5-11.0) K/uL RBC (3.30-5.50) M/uL Hgb (12.0-15.0) g/dL Hct (36.0-48.0) % MCV (80-98) fL MCH (27-31) pg MCHC (32-36) % Plt Count (150-400) K/uL Sodium 136 L (140-148) mmol/L Potassium 3.8 (3.6-5.2) mmol/L Chloride 103 (100-108) mmol/L Carbon Dioxide 25 (21-32) mmol/L Anion Gap 11.8 (5.0-14.0) mmol/L BUN 2 L (7-18) mg/dL Creatinine 0.5 L (0.6-1.0) mg/dL Est Cr Clr Drug Dosing 120.62 mL/min Estimated GFR (MDRD) > 60 (>60) Glucose 102 (74-106) mg/dL Calcium 8.2 L (8.5-10.1) mg/dL Med Orders - Current: Current Medications Acetaminophen (Tylenol) 650 mg PO Q6H PRN PRN Reason: Pain (mild 1-3) Celecoxib (Celebrex) 200 mg PO DAILY@0800 PENDING SALE TO [facility] Last Admin: 11/27/17 12:16 Dose: 200 mg Diphenhydramine HCl (Benadryl) 25 - 50 mg IVPUSH Q6H PRN PRN Reason: ITCHING Enoxaparin Sodium (Lovenox) 40 mg SUBCUT DAILY [facility] Last Admin: 11/27/17 14:47 Dose: 40 mg Gabapentin (Neurontin) 300 mg PO TID [facility] TO [facility] Last Admin: 11/27/17 20:11 Dose: 300 mg Fentanyl 2,500 mcg/ Sodium (Chloride) 250 mls @ 0 mls/hr EPIDUR TITRATE PENDING SALE TO [facility]; Protocol Last Admin: 11/27/17 10:21 Dose: 10 mls/hr, 10 mls/hr Potassium Chloride/Dextrose/Sod Cl (D5 1/2 Ns W/ 20 Meq/L Kcl) 1,000 mls @ 75 mls/hr IV ASDIRECTED [facility]IN[facility] Last Admin: 11/28/17 02:38 Dose: 75 mls/hr Naloxone HCl (Narcan) 0.1 mg IVPUSH Q5M PRN PRN Reason: RESP RATE LESS THAN 6/MINUTE Naloxone HCl (Narcan) 0.4 mg IV ASDIRECTED PRN PRN Reason: ITCHING or Sleepiness Last Admin: 11/28/17 02:38 Dose: 0.4 mg Ondansetron HCl (Zofran) 4 mg IVPUSH Q6H PRN PRN Reason: Nausea/Vomiting Scopolamine (Transderm-Scop) 1.5 mg TOP Q72H [facility] Stop: 11/28/17 06:30 Last Admin: 11/25/17 08:33 Dose: 1.5 mg Discontinued Medications Acetaminophen (Tylenol Extra Strength) 1,000 mg PO ONETIME ONE Stop: 11/25/17 08:31 Last Admin: 11/25/17 08:47 Dose: 1,000 mg Bupivacaine HCl (Marcaine 0.5%) Confirm Administered Dose 50 ml .ROUTE .STK-MED ONE Stop: 11/27/17 06:53 Celecoxib (Celebrex) 200 mg PO ONETIME ONE Stop: 11/25/17 08:31 Last Admin: 11/25/17 08:35 Dose: 200 mg Celecoxib (Celebrex) 200 mg PO DAILY [facility] TO [facility] Dexamethasone (Dexamethasone) Confirm Administered Dose 4 mg .ROUTE .STK-MED ONE Stop: 11/25/17 08:07 Fentanyl (Sublimaze) Confirm Administered Dose 100 mcg .ROUTE .STK-MED ONE Stop: 11/25/17 08:08 Fentanyl Citrate (Fentanyl) Confirm Administered Dose 500 mcg .ROUTE .STK-MED ONE Stop: 11/25/17 08:08 Gabapentin (Neurontin) 300 mg PO ONETIME ONE Stop: 11/25/17 08:31 Last Admin: 11/25/17 08:35 Dose: 300 mg Glycopyrrolate (Robinul) Confirm Administered Dose 1 mg .ROUTE .STK-MED ONE Stop: 11/25/17 08:07 Hydroxyzine HCl (Vistaril) 75 mg IM ONETIME ONE Stop: 11/25/17 12:54 Last Admin: 11/25/17 13:03 Dose: 75 mg Cefoxitin Sodium 2 gm/ Sodium (Chloride) 50 mls @ 100 mls/hr IV ONETIME ONE Stop: 11/25/17 10:59 Last Admin: 11/25/17 10:58 Dose: 100 mls/hr Dextrose/Lactated Ringer's (Dextrose 5%-Lactated Ringers) 1,000 mls @ 100 mls/ hr IV ASDIRECTED PENDING SALE TO [facility] Last Admin: 11/25/17 08:48 Dose: 100 mls/hr Sodium Chloride (Normal Saline) Confirm Administered Dose 10 mls @ as directed .ROUTE .STK-MED ONE Stop: 11/25/17 08:08 Lactated Ringer's (Ringers, Lactated) Confirm Administered Dose 1,000 mls @ as directed .ROUTE .STK-MED ONE Stop: 11/25/17 12:16 Lactated Ringer's (Ringers, Lactated) Confirm Administered Dose 1,000 mls @ as directed .ROUTE .STK-MED ONE Stop: 11/27/17 10:44 Ketamine HCl (Ketalar) 29 mg IV ONETIME ONE Stop: 11/25/17 10:01 Last Admin: 11/26/17 16:32 Dose: Not Given Lidocaine HCl (Xylocaine-Mpf 1%) Confirm Administered Dose 5 ml .ROUTE .STK-MED ONE Stop: 11/25/17 08:43 Last Admin: 11/26/17 16:32 Dose: Not Given Lidocaine HCl (Xylocaine-Mpf 1%) 1 ml INJECT ONETIME ONE Stop: 11/25/17 09:33 Last Admin: 11/26/17 16:32 Dose: Not Given Lidocaine/Epinephrine (Xylocaine 1% With Epinephrine 1:100,000) Confirm Administered Dose 50 ml .ROUTE .STK-MED ONE Stop: 11/27/17 06:53 Meperidine HCl (Demerol) 75 mg IM ONETIME PRN PRN Reason: BREAKTHROUGH PAIN Stop: 11/25/17 23:00 Midazolam HCl (Versed 1 Mg/Ml) Confirm Administered Dose 2 mg .ROUTE .STK-MED ONE Stop: 11/27/17 08:46 Neostigmine Methylsulfate (Neostigmine) Confirm Administered Dose 5 mg .ROUTE .STK-MED ONE Stop: 11/25/17 08:07 Ondansetron HCl (Zofran) Confirm Administered Dose 4 mg .ROUTE .STK-MED ONE Stop: 11/25/17 08:07 Propofol (Diprivan 20 Ml) Confirm Administered Dose 200 mg .ROUTE .STK-MED ONE Stop: 11/25/17 08:07 Propofol (Diprivan 20 Ml) Confirm Administered Dose 200 mg .ROUTE .STK-MED ONE Stop: 11/27/17 08:46 Rocuronium [place] (Zemuron) Confirm Administered Dose 50 mg .ROUTE .STK-MED ONE Stop: 11/25/17 08:07 Succinylcholine Chloride (Quelicin) Confirm Administered Dose 200 mg .ROUTE .STK -MED ONE Stop: 11/25/17 08:07 - Exam Wound/Incisions: Dressing Dry and Intact General: Alert, Oriented, Cooperative, No Acute Distress Lungs: Clear to Auscultation, Normal Respiratory Effort Cardiovascular: Regular Rate, Regular Rhythm GI/Abdominal Exam: Normal Bowel Sounds, Soft, Non-Tender, No Organomegaly, No Distention Extremities: Normal Inspection Skin: Warm, Dry Psy/Mental Status: Alert, Normal Affect, Normal Mood - Problem List & Annotations (1) Adenocarcinoma of colon SNOMED Code(s): 278285623, [id number] Code(s): C18.9 - MALIGNANT NEOPLASM OF COLON, UNSPECIFIED Status: Acute Current Visit: Yes - Problem List Review Problem List Initiated/Reviewed/Updated: Yes - My Orders Last 24 Hours: Active Orders 24 hr Category Date Time Status BASIC METABOLIC PANEL,BMP [CHEM] DAILY Lab 11/29/17 05:11 Ordered BASIC METABOLIC PANEL,BMP [CHEM] DAILY Lab 11/30/17 05:11 Ordered BASIC METABOLIC PANEL,BMP [CHEM] DAILY Lab 12/01/17 05:11 Ordered CBC W/O DIFF,HEMOGRAM [HEME] DAILY Lab 11/29/17 05:11 Ordered CBC W/O DIFF,HEMOGRAM [HEME] DAILY Lab 11/30/17 05:11 Ordered CBC W/O DIFF,HEMOGRAM [HEME] DAILY Lab 12/01/17 05:11 Ordered Medication Orders Acetaminophen (Tylenol) 650 mg PO Q6H PRN PRN Reason: Pain (mild 1-3) Celecoxib (Celebrex) 200 mg PO DAILY@0800 [facility] Last Admin: 11/27/17 12:16 Dose: 200 mg Admin: 11/26/17 08:49 Dose: 200 mg Diphenhydramine HCl (Benadryl) 25 - 50 mg IVPUSH Q6H PRN PRN Reason: ITCHING Enoxaparin Sodium (Lovenox) 40 mg SUBCUT DAILY PENDING SALE TO [facility] Last Admin: 11/27/17 14:47 Dose: 40 mg Admin: 11/26/17 08:49 Dose: 40 mg Gabapentin (Neurontin) 300 mg PO TID [facility] Last Admin: 11/27/17 20:11 Dose: 300 mg Admin: 11/27/17 16:48 Dose: 300 mg Admin: 11/27/17 12:16 Dose: 300 mg Admin: 11/26/17 20:17 Dose: 300 mg Admin: 11/26/17 13:17 Dose: 300 mg Admin: 11/26/17 08:49 Dose: 300 mg Admin: 11/25/17 20:49 Dose: 300 mg Fentanyl 2,500 mcg/ Sodium (Chloride) 250 mls @ 0 mls/hr EPIDUR TITRATE [facility]; Protocol Last Admin: 11/27/17 10:21 Dose: 10 mls/hr, 10 mls/hr Titration: 11/27/17 10:21 Dose: 10 mls/hr, 10 mls/hr Admin: 11/26/17 09:31 Dose: 10 mls/hr, 10 mls/hr Titration: 11/26/17 09:31 Dose: 10 mls/hr, 10 mls/hr Admin: 11/25/17 14:55 Dose: 10 mls/hr, 10 mls/hr Potassium Chloride/Dextrose/Sod Cl (D5 1/2 Ns W/ 20 Meq/L Kcl) 1,000 mls @ 75 mls/hr IV ASDIRECTED DINESH Last Admin: 11/28/17 02:38 Dose: 75 mls/hr Infusion: 11/28/17 02:38 Dose: 75 mls/hr Admin: 11/27/17 13:23 Dose: 75 mls/hr Infusion: 11/27/17 13:23 Dose: 75 mls/hr Admin: 11/27/17 04:32 Dose: 75 mls/hr Infusion: 11/27/17 04:21 Dose: 75 mls/hr Admin: 11/26/17 15:01 Dose: 75 mls/hr Infusion: 11/26/17 15:01 Dose: 75 mls/hr Admin: 11/26/17 02:15 Dose: 75 mls/hr Infusion: 11/26/17 02:15 Dose: 75 mls/hr Admin: 11/25/17 14:51 Dose: 75 mls/hr Naloxone HCl (Narcan) 0.1 mg IVPUSH Q5M PRN PRN Reason: RESP RATE LESS THAN 6/MINUTE Naloxone HCl (Narcan) 0.4 mg IV ASDIRECTED PRN PRN Reason: ITCHING or Sleepiness Last Admin: 11/28/17 02:38 Dose: 0.4 mg Admin: 11/27/17 13:21 Dose: 0.4 mg Ondansetron HCl (Zofran) 4 mg IVPUSH Q6H PRN PRN Reason: Nausea/Vomiting Scopolamine (Transderm-Scop) 1.5 mg TOP Q72H [facility] Stop: 11/28/17 06:30 Last Admin: 11/25/17 08:33 Dose: 1.5 mg - Assessment Assessment (Free Text/Narrative):: Moderately differentiated adenocarcinoma with 26 lymph nodes free of tumor. - Plan Plan (Free Text/Narrative):: Advance diet. Remove epidural tomorrow.
[2017-11-28] MEDS: Gabapentin 300 MG Cap PO SCH ×3 (08:13→21:21)
[2017-11-28] MEDS: Celecoxib 200 MG Cap PO SCH (08:13)
[2017-11-28] MEDS: Enoxaparin 40 MG/0.4 ML Syringe SUBCUT SCH (08:13)
[2017-11-28] MEDS: fentaNYL 2,500 MCG in Sodium Chloride 0.9% 200 ML EPIDUR SCH (11:12)
[2017-11-28] MEDS: Ibuprofen 600 MG Tab PO SCH ×2 (12:00→17:46)
[2017-11-28] MEDS: Acetaminophen 325 MG Tab PO SCH ×2 (15:37→21:21)
[2017-11-28] MEDS: Hydrocortisone 1% Crm 30 GM Tube TOP SCH (22:43)
[2017-11-29] MEDS: Ibuprofen 600 MG Tab PO SCH ×5 (00:18→23:26)
[2017-11-29] MEDS: Acetaminophen 325 MG Tab PO SCH ×4 (03:06→20:28)
[2017-11-29] MEDS: D5 1/2 NS w/ 20 mEq/L KCl 1,000 ML IV SCH (05:25)
[2017-11-29] MEDS ORDERED: HYDROmorphone 2 MG Tab PO PRN (07:00)
[2017-11-29] MEDS: Celecoxib 200 MG Cap PO SCH (08:05)
[2017-11-29] MEDS: Enoxaparin 40 MG/0.4 ML Syringe SUBCUT SCH (08:06)
[2017-11-29] MEDS: Gabapentin 300 MG Cap PO SCH ×3 (08:06→20:31)
[2017-11-29] MEDS: Hydrocortisone 1% Crm 30 GM Tube TOP SCH ×2 (08:07→20:29)
[2017-11-29] MEDS: Bisacodyl 5 MG Tab PO SCH ×2 (09:31→20:29)
[2017-11-29] MEDS: Docusate Sodium 100 MG Cap PO SCH ×2 (09:31→20:29)
--- NOTE | 2017-11-29 12:36 | PN ---
DATE OF SERVICE: 11/29/2017 SUBJECTIVE: Kelly is postop day #4 following a right hemicolectomy. She states her pain is controlled. She still has the epidural. Vital signs have been stable. She has been up ambulating. REVIEW OF SYSTEMS: Remainder of review of systems negative for any pertinent positives and negatives. OBJECTIVE: GENERAL: Kelly Gomez is a 52-year-old female. She is alert and orientated. VITAL SIGNS: TPR is 98.6, 78, 16, and blood pressure 155/79. HEENT: Negative. NECK: Supple. HEART: Regular rate and rhythm. LUNGS: Clear. ABDOMEN: She has a bright pink, flat, hot rash noted on abdomen, where the binder was. Aquacel dressing was removed. [place] intact. She still has tape on her back from the epidural. EXTREMITIES: Without peripheral edema. ASSESSMENT: Right hemicolectomy with primary ileotransverse colon anastomosis for hepatic flexure tumor. Date of procedure, 11/25/2017. Surgeon, Cam Reddy MD. PLAN: 1. Discontinue epidural. 2. Discontinue IV Dilaudid. 3. Dilaudid 2 mg 1 to 2 every 4 hours p.r.n. pain. 4. Discontinue Lovenox. 5. Colace 100 mg b.i.d. 6. Regular diet. 7. Dulcolax tabs 10 mg b.i.d. until BM. 8. May shower. 9. Dietary consult. 10.Good pulmonary toilet. 11.We will evaluate p.r.n. or in a.m. Cintia Forbes PA-C /[id number]
[2017-11-29] MEDS ORDERED: diphenhydrAMINE 25 MG Cap PO PRN ×2 (15:01→17:35)
[2017-11-30] MEDS: Acetaminophen 325 MG Tab PO SCH ×2 (02:21→08:16)
[2017-11-30] MEDS: Ibuprofen 600 MG Tab PO SCH (05:43)
[2017-11-30 07:17] VITALS: BP 163/81
[2017-11-30] MEDS: Docusate Sodium 100 MG Cap PO SCH (08:14)
[2017-11-30] MEDS: Hydrocortisone 1% Crm 30 GM Tube TOP SCH (08:16)
[2017-11-30] MEDS: Bisacodyl 5 MG Tab PO SCH (08:16)
[2017-11-30] MEDS: Gabapentin 300 MG Cap PO SCH (08:17)
--- NOTE | 2017-12-01 18:45 | PN ---
DATE OF SERVICE: 11/30/2017 The patient has been afebrile with stable vital signs. She will be discharged to home. She has redness across her abdomen and flanks. We will treat that with hydrocortisone cream. She is not running any fever and not ill per se. Straight summary primary notable for pain and we will send her home with a combination of Tylenol, Colace, Neurontin, and ibuprofen for pain and she will be following up with Dr. Reddy on 12/06/2017 in [facility] (Former[facility]). She will call us if she develops fevers or other problems such as increasing issues with her incision in abdominal wall. Negro Worrell MD /[id number]
--- NOTE | 2017-12-04 14:32 | PCM.DCSUM1 ---
Discharge Summary - Hospital Course Free Text/Narrative:: This 52 year old white female underwent a screening colonoscopy which returned multiple adenomatous polyps and a hepatic flexure tumor which returned adenocarcinoma. She had an unremarkable CBC, CMP and normal CEA. Her CT of chest/abdomen/pelvis was unremarkable except for some small probably benign lesions in her liver. She underwent an open right hemicolectomy with primary anastomosis. Her post operative course was unremarkable and she was discharged to home eating well on November 30, 2017. We did, because of no bowel prep, a delayed primary closure with the closure done on the second post operative day. Pathology returned a moderately differentiated adenocarcinomal. All 26 nodes are free of tumor. She is in good condition. Brief History: See above narrative. - Discharge Data Discharge Date: 11/30/17 Discharge Disposition: Home, Self-Care 01 Condition: Good - Discharge Diagnosis/Problem(s) (1) Adenocarcinoma of colon SNOMED Code(s): 032573052, [id number] ICD Code: C18.9 - MALIGNANT NEOPLASM OF COLON, UNSPECIFIED Status: Acute - Patient Summary/Data Operative Procedure(s) Performed: Right hemicolectomy with ileotransverse colon anastomosis. Consults: Consultations 11/25/17 12:50 Respiratory Care Assess and Treatment [CONS] Routine Comment: Physician Instructions: Post-Op Pneumonia Prevention 11/29/17 08:03 Consult to Pharmacy Sales Representative [CONS] Routine Comment: Physician Instructions: Quantity: Hospital Course: See above narrative. - Patient Instructions Diet: Usual Diet as Tolerated Activity: No Lifting Over 10 Pounds, No Strenuous Activities Driving: Do Not Drive Showering/Bathing: May Shower - Discharge Plan Home Medications: Home Meds Multivitamin [Multi-Vitamin Daily] 1 each PO DAILY 11/21/17 [History] Norethindrone AC-Eth Estradiol [Daniel] 1 each PO DAILY 11/21/17 [History] Patient Handouts: Colorectal Cancer - Discharge Summary/Plan Comment DC Time >30 min.: Yes Discharge Summary/Plan Comment: See above narrative. - Patient Data Vitals - Most Recent: Last Vital Signs Temp 97.6 F 11/30/17 07:14 Pulse 102 H 11/30/17 07:14 Resp 16 11/30/17 07:14 BP 163/81 H 11/30/17 07:14 Pulse Ox 100 04/07/18 07:14 Weight - Most Recent: 165 lb 0.891 oz Med Orders - Current: Current Medications Discontinued Medications Acetaminophen (Tylenol Extra Strength) 1,000 mg PO ONETIME ONE Stop: 11/25/17 08:31 Last Admin: 11/25/17 08:47 Dose: 1,000 mg Acetaminophen (Tylenol) 650 mg PO Q6H PRN PRN Reason: Pain (mild 1-3) Acetaminophen (Tylenol) 650 mg PO Q6H [facility] Last Admin: 11/30/17 08:16 Dose: 650 mg Bisacodyl (Dulcolax) 10 mg PO BID [facility] Last Admin: 11/30/17 08:16 Dose: Not Given Bupivacaine HCl (Marcaine 0.5%) Confirm Administered Dose 50 ml .ROUTE .STK-MED ONE Stop: 11/27/17 06:53 Celecoxib (Celebrex) 200 mg PO ONETIME ONE Stop: 11/25/17 08:31 Last Admin: 11/25/17 08:35 Dose: 200 mg Celecoxib (Celebrex) 200 mg PO DAILY [facility] Celecoxib (Celebrex) 200 mg PO DAILY@0800 [facility] Last Admin: 11/29/17 08:05 Dose: 200 mg Dexamethasone (Dexamethasone) Confirm Administered Dose 4 mg .ROUTE .STK-MED ONE Stop: 11/25/17 08:07 Diphenhydramine HCl (Benadryl) 25 - 50 mg IVPUSH Q6H PRN PRN Reason: ITCHING Stop: 11/29/17 07:00 Last Admin: 11/28/17 13:36 Dose: 25 mg Diphenhydramine HCl (Benadryl) 50 mg PO Q4H PRN PRN Reason: Itching Last Admin: 11/29/17 16:28 Dose: 50 mg Diphenhydramine HCl (Benadryl) 50 mg PO Q6H PRN PRN Reason: Itching Docusate Sodium (Colace) 100 mg PO BID [facility] Last Admin: 11/30/17 08:14 Dose: Not Given Enoxaparin Sodium (Lovenox) 40 mg SUBCUT DAILY [facility] Last Admin: 11/29/17 08:06 Dose: Not Given Fentanyl (Sublimaze) Confirm Administered Dose 100 mcg .ROUTE .STK-MED ONE Stop: 11/25/17 08:08 Fentanyl Citrate (Fentanyl) Confirm Administered Dose 500 mcg .ROUTE .STK-[facility] ONE Stop: 11/25/17 08:08 Gabapentin (Neurontin) 300 mg PO ONETIME ONE Stop: 11/25/17 08:31 Last Admin: 11/25/17 08:35 Dose: 300 mg Gabapentin (Neurontin) 300 mg PO TID [facility] Last Admin: 11/30/17 08:17 Dose: Not Given Glycopyrrolate (Robinul) Confirm Administered Dose 1 mg .ROUTE .[facility] ONE Stop: 11/25/17 08:07 Hydrocortisone (Hydrocortisone 1% Crm) 0 gm TOP BID [facility] Last Admin: 11/30/17 08:16 Dose: 1 applicful Hydromorphone HCl (Dilaudid) 2 - 4 mg PO Q4H PRN PRN Reason: Pain Hydroxyzine HCl (Vistaril) 75 mg IM ONETIME ONE Stop: 11/25/17 12:54 Last Admin: 11/25/17 13:03 Dose: 75 mg Cefoxitin Sodium 2 gm/ Sodium (Chloride) 50 mls @ 100 mls/hr IV ONETIME ONE Stop: 11/25/17 10:59 Last Admin: 11/25/17 10:58 Dose: 100 mls/hr Dextrose/Lactated Ringer's (Dextrose 5%-Lactated Ringers) 1,000 mls @ 100 mls/ hr IV ASDIRECTED [facility] Last Admin: 11/25/17 08:48 Dose: 100 mls/hr Fentanyl 2,500 mcg/ Sodium (Chloride) 250 mls @ 0 mls/hr EPIDUR TITRATE [facility]; Protocol Stop: 11/29/17 07:00 Last Admin: 11/28/17 11:12 Dose: 10 mls/hr, 10 mls/hr Sodium Chloride (Normal Saline) Confirm Administered Dose 10 mls @ as directed .ROUTE .[facility] ONE Stop: 11/25/17 08:08 Lactated Ringer's (Ringers, Lactated) Confirm Administered Dose 1,000 mls @ as directed .ROUTE .[facility] ONE Stop: 11/25/17 12:16 Potassium Chloride/Dextrose/Sod Cl (D5 1/2 Ns W/ 20 Meq/L Kcl) 1,000 mls @ 75 mls/hr IV ASDIRECTED [facility] Last Admin: 11/29/17 05:25 Dose: 75 mls/hr Lactated Ringer's (Ringers, Lactated) Confirm Administered Dose 1,000 mls @ as directed .ROUTE .STK-MED ONE Stop: 11/27/17 10:44 Ibuprofen (Motrin) 600 mg PO Q6H [facility] Last Admin: 11/30/17 05:43 Dose: 600 mg Ketamine HCl (Ketalar) 29 mg IV ONETIME ONE Stop: 11/25/17 10:01 Last Admin: 11/26/17 16:32 Dose: Not Given Lidocaine HCl (Xylocaine-Mpf 1%) Confirm Administered Dose 5 ml .ROUTE .STK-MED ONE Stop: 11/25/17 08:43 Last Admin: 11/26/17 16:32 Dose: Not Given Lidocaine HCl (Xylocaine-Mpf 1%) 1 ml INJECT ONETIME ONE Stop: 11/25/17 09:33 Last Admin: 11/26/17 16:32 Dose: Not Given Lidocaine/Epinephrine (Xylocaine 1% With Epinephrine 1:100,000) Confirm Administered Dose 50 ml .ROUTE .STK-MED ONE Stop: 11/27/17 06:53 Meperidine HCl (Demerol) 75 mg IM ONETIME PRN PRN Reason: BREAKTHROUGH PAIN Stop: 11/25/17 23:00 Midazolam HCl (Versed 1 Mg/Ml) Confirm Administered Dose 2 mg .ROUTE .STK-MED ONE Stop: 11/27/17 08:46 Naloxone HCl (Narcan) 0.1 mg IVPUSH Q5M PRN PRN Reason: RESP RATE LESS THAN 6/MINUTE Stop: 11/29/17 07:00 Naloxone HCl (Narcan) 0.4 mg IV ASDIRECTED PRN PRN Reason: ITCHING or Sleepiness Stop: 11/29/17 07:00 Last Admin: 11/28/17 13:35 Dose: 0.4 mg Neostigmine Methylsulfate (Neostigmine) Confirm Administered Dose 5 mg .ROUTE .STK-MED ONE Stop: 11/25/17 08:07 Ondansetron HCl (Zofran) Confirm Administered Dose 4 mg .ROUTE .STK-MED ONE Stop: 11/25/17 08:07 Ondansetron HCl (Zofran) 4 mg IVPUSH Q6H PRN PRN Reason: Nausea/Vomiting Propofol (Diprivan 20 Ml) Confirm Administered Dose 200 mg .ROUTE .STK-MED ONE Stop: 11/25/17 08:07 Propofol (Diprivan 20 Ml) Confirm Administered Dose 200 mg .ROUTE .STK-MED ONE Stop: 11/27/17 08:46 Rocuronium [place] (Zemuron) Confirm Administered Dose 50 mg .ROUTE .STK-MED ONE Stop: 11/25/17 08:07 Scopolamine (Transderm-Scop) 1.5 mg TOP Q72H [facility] Stop: 11/28/17 06:30 Last Admin: 11/25/17 08:33 Dose: 1.5 mg Succinylcholine Chloride (Quelicin) Confirm Administered Dose 200 mg .ROUTE .STK -MED ONE Stop: 11/25/17 08:07
== END 2017-11-30 09:16 | disposition home or self-care (01) | DRG 331 ==
LOC: JP.SDS 08:11 → JP.SDSSCHI 08:11 → EDSTATUS 09:45 → JP.MS 12:50
PROVIDERS: ADMIT Surgery; ATTEND Surgery
PROC: 0DTF0ZZ Resection of Right Large Intestine, Open Approach (ICD-10-PCS; principal; 2017-11-25)
PROC: 0WQF0ZZ Repair Abdominal Wall, Open Approach (ICD-10-PCS; 2017-11-27)
DX: C18.3 Malignant neoplasm of hepatic flexure (principal); N94.6 Dysmenorrhea, unspecified; Z48.1 Encounter for planned postprocedural wound closure
CPT/HCPCS: 36415; 80048; 85027; 88305; 88309; 94762; A9270-GY; J0330; J0694; J1100; J1200; J1650; J2250; J2310; J2405; J2704; J2710; J3010; J3410; J3480; J7042; J7050; J7120

== ENCOUNTER 2018-12-10 06:25 | Day surgery (SDC) | payer MEDICAID ==
[2018-12-10] MEDS ORDERED: Lactated Ringers 1,000 ML IV SCH (07:00)
[2018-12-10] MEDS ORDERED: Midazolam 1 MG/ML 2 ML SDV ONE (07:12)
[2018-12-10] MEDS ORDERED: fentaNYL 100 MCG/2 ML SDV ONE (07:12)
[2018-12-10] MEDS ORDERED: Propofol 200 MG/20 ML SDV ONE ×2 (07:12→07:52)
[2018-12-10 09:04] VITALS: BP 130/70
--- NOTE | 2018-12-10 15:29 | OR ---
DATE OF PROCEDURE: 12/10/2018 PREOPERATIVE DIAGNOSIS: History of colon cancer. POSTOPERATIVE DIAGNOSES: Diverticulosis, small polyp 40 cm from the anal verge , history of colon cancer. PROCEDURE: Colonoscopy to the ileotransverse colon anastomosis with biopsy resection of small polyp, 40 cm from the anal verge. SURGEON: Cam Reddy MD ANESTHESIA: IV anesthesia with monitored anesthesia care. INDICATIONS: This 53-year-old white female, a year ago, underwent a right hemicolectomy for adenocarcinoma of the colon. Her lymph nodes were all free of tumor. She is here for a 1- year followup colonoscopy. I counseled her for the procedure, including risks and alternatives, and she gave her informed consent to proceed. DESCRIPTION OF PROCEDURE: The patient was placed in the left lateral decubitus position. IV anesthesia was administered by the Anesthesia Service. Time-out was held. A rectal exam was performed, which was unremarkable. The flexible video Olympus colonoscope was introduced through her anus, up her rectum, and out her colon all the way to the ileotransverse colon anastomosis. En route, we saw a small polyp at 40 cm from the anal verge , which was removed with a few bites of the biopsy forceps. Additionally, I saw a single diverticulum. Once the anastomosis was reached, the scope was slowly withdrawn examining the mucosa throughout. No other mucosal abnormalities were noted. There was no evidence of local recurrence at the anastomosis. The scope was retroflexed in the rectum with the distal rectum appearing unremarkable. The scope was straightened and removed. She tolerated the procedure well. Cam Reddy MD /[id number]
== END 2018-12-10 09:09 | disposition home or self-care (01) ==
LOC: JP.SDS 06:25
PROVIDERS: ATTEND Surgery
DX: Z08 Encounter for follow-up examination after completed treatment for malignant neoplasm (principal); D12.5 Benign neoplasm of sigmoid colon; K57.30 Diverticulosis of large intestine without perforation or abscess without bleeding; J45.909 Unspecified asthma, uncomplicated; Z90.49 Acquired absence of other specified parts of digestive tract; Z85.038 Personal history of other malignant neoplasm of large intestine
CPT/HCPCS: 45380; 88305; J2250; J2704; J3010; J7120

== ENCOUNTER → 2019-12-11 | Day surgery (SDC) | payer MEDICAID ==
[~2019-12-11] MED LIST changes: -Dexamethasone 4 MG/ML SDV ONE; +Dextrose 5%-Lactated Ringers 1,000 ML IV SCH; -Glycopyrrolate 0.2 MG/ML 5 ML MDV ONE; +Midazolam 1 MG/ML 2 ML SDV ONE; -Naloxone 0.4 MG/ML SDV IVPUSH PRN; -Neostigmine Methylsulfate 1 MG/ML 5 ML Syringe ONE; -Ondansetron 4 MG/2 ML SDV ONE; -Rocuronium 50 MG/5 ML Vial ONE; -Sodium Chloride 0.9% 10 ML ONE; -Succinylcholine 200 MG/10 ML MDV ONE
[2019-12-11 09:31] VITALS: BP 143/77; PULSE 83
--- NOTE | 2019-12-22 07:14 | OR ---
DATE OF PROCEDURE: 12/11/2019 SURGEON: Negro Worrell MD PREOPERATIVE DIAGNOSIS: History of colon polyps and colon carcinoma, status post right colectomy. POSTOPERATIVE DIAGNOSES: 1. History of colon polyps and colon carcinoma, status post right colectomy. 2. No recurrent polyps or signs of neoplasia. OPERATIVE PROCEDURE: Flexible colonoscopy. ANESTHESIA: IV sedation. INDICATIONS FOR PROCEDURE: This is a 54-year-old presenting with a right colon carcinoma, underwent right colectomy in November 2017. She presents now for a followup colonoscopy. Potential risks of the procedure including bleeding and perforation were discussed, and the patient wishes to proceed. DETAILS OF PROCEDURE: The patient was taken to the operating room and placed in a left lateral decubitus position. IV sedation was administered, after which the initial digital rectal exam was performed and was unremarkable. Colonoscope was then passed into the rectum with retroflexion revealing uncomplicated hemorrhoidal columns. Scope was eventually passed to the level of the ileocolic anastomosis and slightly into the small bowel. To that level, no abnormalities were noted. There were no recurrent polyps noted and no evidence of local recurrence at the ileocolic anastomosis. Apart from that, the patient had a few left-sided diverticula. Scope was then withdrawn, the above findings were reconfirmed, and the procedure was then concluded. The prep was quite good. Given the patient's relatively young age of developing colon carcinoma, per the recommendations of Kelsea Cloud MD of the Medical Oncology Department, who is following the case, would recommend another colonoscopy in 1 year, and then if that is negative, one can begin spacing these out to perhaps 2 to 3 years for a period of time. Negro Worrell MD /[id number]
== END ==
LOC: JP.SDS 06:43
PROVIDERS: ATTEND Surgery
DX: Z08 Encounter for follow-up examination after completed treatment for malignant neoplasm (principal); K57.30 Diverticulosis of large intestine without perforation or abscess without bleeding; K64.9 Unspecified hemorrhoids; Z98.0 Intestinal bypass and anastomosis status; Z85.038 Personal history of other malignant neoplasm of large intestine; Z90.49 Acquired absence of other specified parts of digestive tract
CPT/HCPCS: 45378; J2250; J2704; J3010; J7121

== ENCOUNTER 2020-12-12 06:46 | Day surgery (SDC) | payer MEDICAID ==
[2020-12-12] MEDS ORDERED: Propofol 200 MG/20 ML SDV ONE (06:48)
[2020-12-12] MEDS ORDERED: Midazolam 1 MG/ML 2 ML SDV ONE (06:48)
[2020-12-12] MEDS ORDERED: fentaNYL 100 MCG/2 ML SDV ONE (06:48)
[2020-12-12] MEDS ORDERED: Sodium Chloride 0.9% 1,000 ML IV SCH (07:15)
[2020-12-12 09:41] VITALS: BP 140/82; PULSE 81
--- NOTE | 2020-12-12 12:21 | OR ---
DATE OF PROCEDURE: 12/12/2020 SURGEON: Refugio Chandler MD PROCEDURE: Colonoscopy. FINDINGS: Two small polypoid type lesions in proximity to the ileocolic anastomosis. COMPLICATIONS: None. RIDE ATTENDANT: None. PREOPERATIVE DIAGNOSIS: History of colorectal cancer. POSTOPERATIVE DIAGNOSIS: History of colorectal cancer. RISKS: Risks, benefits, alternatives, and limitations including but not limited to infection, bleeding, perforation, and false positives and false negatives were explained to the patient who wished to proceed. PROCEDURE IN DETAIL: The patient was placed in left lateral decubitus position. Digital rectal exam was performed without abnormality. Scope was introduced and advanced to the anastomosis. The anastomosis appeared normal without evidence of any variation, old or new blood. At the anastomosis of the small bowel, there were 2 small polypoid type lesions. These were either early polyps or just redundant tissue secondary to the anastomotic formation. Nonetheless, these were biopsied and completely removed using cold biopsy forceps. The remainder of the colon was inspected without abnormality. No evidence of old or new blood. No masses. No other polyps. No abnormalities on retroflexion. Greater than 8 minutes was spent removing the scope. Greater than 90% of luminal surface could be seen. The patient tolerated the procedure well. Refugio Chandler MD /[id number]
== END 2020-12-12 09:55 | disposition home or self-care (01) ==
LOC: JP.SDS 06:46
PROVIDERS: ATTEND Surgery
DX: Z12.11 Encounter for screening for malignant neoplasm of colon (principal); K63.89 Other specified diseases of intestine; Z85.038 Personal history of other malignant neoplasm of large intestine
CPT/HCPCS: 45380; J2250; J2704; J3010; J7030; 88305